=== PATIENT | male | born 1985 | race Caucasian/White ===

== ENCOUNTER 2022-05-05 03:14 | Emergency (ER) | payer SELFPAY ==
[~2022-05-05] VITALS: Ht 172.7 cm; Wt 90.9 kg
[2022-05-05] MEDS ORDERED: AMOX-115 PO (03:24)
[2022-05-05] MEDS ORDERED: bacitracin 15gm ointment TP ONE (03:25)
[2022-05-05] MEDS ORDERED: ondansetron 4mg rapidly disintigrating tab PO ONE (03:25)
[2022-05-05] MEDS ORDERED: amox tr/potassium clavulanate 500mg/125mg TAB PO ONE (03:25)
[2022-05-05 03:28] VITALS: BP 122/82
== END 2022-05-05 04:41 ==
LOC: ER 03:15
DX: S51.851A Open bite of right forearm, initial encounter (principal); W54.0XXA Bitten by dog, initial encounter; Y93.89 Activity, other specified; Y92.89 Other specified places as the place of occurrence of the external cause; Y99.8 Other external cause status
CPT/HCPCS: 73090; 99284; J7030; A6446; A6449

== ENCOUNTER 2024-09-21 17:14 | Emergency (ER) | payer MEDICAID ==
[~2024-09-21] VITALS: Ht 175.3 cm; Wt 91.5 kg
[2024-09-21 17:23] VITALS: TEMP 97.3
[2024-09-21] MEDS: ondansetron 4mg rapidly disintigrating tab PO ONE (20:13)
[2024-09-21] MEDS ORDERED: ONDA-245 PO (20:16)
[2024-09-21] MEDS ORDERED: LOPE2CAP PO (20:16)
[2024-09-21] MEDS: normal saline 1000ml 1,000 ML IV ONE (20:19)
[2024-09-21] MEDS: ondansetron/PF 4mg/2ml inj IV ONE (20:19)
[2024-09-21] MEDS: loperamide 2mg capsule PO ONE (20:19)
[2024-09-21 20:56] VITALS: BP 138/92; PULSE 108; RESP 16; O2SAT 100
== END 2024-09-21 20:59 | disposition home or self-care (01) ==
LOC: ER 17:15
DX: K52.9 Noninfective gastroenteritis and colitis, unspecified (principal); Z88.8 Allergy status to other drugs, medicaments and biological substances
CPT/HCPCS: 96360; 99283; J7030